=== PATIENT | male | born 1995 | race Two or more races ===

== ENCOUNTER 2022-07-28 09:51 | Emergency (ER) | payer OTHER ==
[~2022-07-28] VITALS: Ht 170.2 cm; Wt 68.0 kg
== END 2022-07-28 14:07 | disposition home or self-care (01) ==
LOC: ER 09:51
DX: M25.561 Pain in right knee (principal)

== ENCOUNTER 2022-07-31 13:38 | Outpatient (CLI) | payer OTHER | END 2022-07-31 13:53 | disposition home or self-care (01) | LOC: MRI 13:38 | PROVIDERS: ATTEND General Practice | DX: S83.206A Unspecified tear of unspecified meniscus, current injury, right knee, initial encounter (principal) | CPT/HCPCS: 73718 ==